=== PATIENT | female | born 1970 | race Two or more races ===

== ENCOUNTER 2017-09-30 08:29 | Day surgery (SDC) | payer OTHER | END 2017-09-30 13:30 | disposition home or self-care (01) | LOC: AMB-ENDOS 08:29 | DX: D12.2 Benign neoplasm of ascending colon (principal); D12.5 Benign neoplasm of sigmoid colon; K64.1 Second degree hemorrhoids; K57.30 Diverticulosis of large intestine without perforation or abscess without bleeding ==

== ENCOUNTER 2020-06-06 05:22 | Day surgery (SDC) | payer OTHER ==
[~2020-06-06 05:22] MED LIST: LIPITOR20 MG PO
== END 2020-06-06 11:40 | disposition home or self-care (01) ==
LOC: CIR.AMB 05:22
PROVIDERS: ATTEND Obstetrics & Gynecology
DX: D06.7 Carcinoma in situ of other parts of cervix (principal); Z20.828 Contact with and (suspected) exposure to other viral communicable diseases; N72 Inflammatory disease of cervix uteri

== ENCOUNTER 2020-07-18 08:45 | Inpatient (IN) | payer OTHER ==
[~2020-07-18] VITALS: Ht 165.1 cm; Wt 67.6 kg
[2020-07-26] MEDS ORDERED: COLESTIPOL HCL1 GM (08:08)
[2020-07-27] MEDS ORDERED: POLY119PG PO (06:58)
[2020-07-27] MEDS ORDERED: NEURONTIN600 MG PO (06:58)
[2020-07-27] MEDS ORDERED: SIMETHICONE125 M1 PO (06:58)
[2020-07-27] MEDS ORDERED: IBUPROFEN800 MG PO (06:58)
== END 2020-07-27 09:14 | disposition home or self-care (01) | DRG 743 ==
LOC: O/R 07-25 05:15 → OB/GYN 07-25 05:15
PROVIDERS: ADMIT Obstetrics & Gynecology; ATTEND Obstetrics & Gynecology
PROC: 0UB70ZZ Excision of Bilateral Fallopian Tubes, Open Approach (ICD-10-PCS; 2020-07-25)
PROC: 0UT90ZZ Resection of Uterus, Open Approach (ICD-10-PCS; principal; 2020-07-25 08:30)
DX: D25.9 Leiomyoma of uterus, unspecified (principal); N87.1 Moderate cervical dysplasia; N72 Inflammatory disease of cervix uteri; N84.0 Polyp of corpus uteri; N83.8 Other noninflammatory disorders of ovary, fallopian tube and broad ligament